=== PATIENT | female | born 1990 | race Caucasian/White ===

== ENCOUNTER 2018-05-02 03:09 | Emergency (ER) | payer OTHER ==
[2018-05-02] MEDS ORDERED: MAG HYDROX/AL HYDROX/SIMETH 30 ML UDC PO STA (03:49)
[2018-05-02] MEDS ORDERED: ACETAMINOPHEN 325 MG TABLET PO STA (03:49)
[2018-05-02] MEDS ORDERED: FAMOTIDINE 20 MG TABLET PO STA (03:49)
[2018-05-02] MEDS ORDERED: LIDOCAINE VISCOUS 2% 15 ML UDC MM STA (03:49)
--- NOTE | 2018-05-02 03:49 | ED Physician Documentation ---
PD HPI ABD PAIN - Stated complaint Stated Complaint: DIFF BREATHING/CHEST PX - Chief complaint Chief Complaint: Cardiac - History obtained from History obtained from: Patient - History of Present Illness Timing - onset: Today Timing - details: Abrupt onset, Still present Quality: Sharp Location: Epigastric Worsened by: Palpation Associated symptoms: Nausea. No: Fever, Vomiting, Hematemesis, Diarrhea, Chest pain Similar symptoms before: Has not had sx before Recently seen: Not recently seen - Additional information Additional information: Patient is a 28 year old female with no significant past medical history who is presenting to the emergency department for epigastric pain. patient states that it started this evening and woke her up from sleep. patient states that it is in her epigastric region and radiates to her back. patient had eggs and potatoes for dinner but nothing out of the ordinary. patient does report being under a lot of stress lately as her father was recently diagnosed with ALS. Patient denies a history of clots or exogenous estrogen use. Review of Systems Ten Systems: 10 systems reviewed and negative Constitutional: denies: Fever, Chills GI: reports: Abdominal Pain, Nausea : denies: Dysuria, Frequency Psychiatric: reports: Anxiety PD PAST MEDICAL HISTORY - Past Medical History Past Medical History: Yes Cardiovascular: None Respiratory: Asthma Neuro: Migraines Endocrine/Autoimmune: None GI: None OPERATIONS MGR: None : None HEENT: None Derm: None - Past Surgical History Past Surgical History: Yes /OPERATIONS MGR: section - Present Medications Home Medications: Ambulatory Orders Medication Instructions Recorded Confirmed No Known Home Medications 05/02/18 05/02/18 - Allergies Allergies/Adverse Reactions: Allergies Allergy/AdvReac Type Severity Reaction Status Date / Time No Known Drug Allergies Allergy Verified 05/02/18 03:22 - Social History Does the pt smoke?: No Smoking Status: Never smoker Does the pt drink ETOH?: Yes Does the pt have substance abuse?: No - Immunizations Immunizations are current?: Yes - POLST Patient has POLST: No PD ED PE NORMAL - Vitals Vital signs reviewed: Yes - General General: Alert and oriented X 3, No acute distress, Well developed/nourished - HEENT HEENT: Atraumatic - Cardiac Cardiac: RRR, No murmur - Respiratory Respiratory: No respiratory distress - Abdomen Abdomen: Soft - Derm Derm: Normal color, Warm and dry, No rash - Extremities Extremities: No deformity, Normal ROM s pain, No calf tenderness / cord - Neuro Neuro: Alert and oriented X 3 Eye Opening: Spontaneous Motor: Obeys Commands Verbal: Oriented GCS Score: 15 PD ED PE EXPANDED - Abdomen Abdomen: Tender to palpation, Epigastric Results - Vitals Vitals: Vital Signs - 24 hr 05/02/18 05/02/18 03:17 03:44 Temperature 36.1 C L Heart Rate 91 78 Respiratory 16 17 Rate Blood Pressure 136/87 H 130/83 H O2 Saturation 98 97 Oxygen O2 Source Room air - EKG (time done) 0325 Rate: Rate (enter#) (83) Rhythm: NSR [place]: Normal Intervals: Normal SD QRS: Normal Ischemia: Normal ST segments Compare to prior EKG: Old EKG unavailable PD MEDICAL DECISION MAKING - ED course Complexity details: reviewed old records, reviewed results, re-evaluated dale hoyos, considered differential, d/w patient ED course: Patient was seen and examined at bedside. ekg was performed and was within normal limits. labs were drawn. patient was treated with pepcid, maalox, and viscous lidocaine. patient's diagnostics were within normal limits. patient had a HEART score of 1 and PERC 0. patient's symptoms were likely secondary to PUD or GERD. patient was made aware of the findings and given detailed discharge and follow up instructions. patient required no further work up and was stable for discharge with outpatient follow up. - Sepsis Event Vital Signs: Vital Signs - 24 hr 05/02/18 05/02/18 03:17 03:44 Temperature 36.1 C L Heart Rate 91 78 Respiratory 16 17 Rate Blood Pressure 136/87 H 130/83 H O2 Saturation 98 97 Oxygen O2 Source Room air Departure - Departure Disposition: 01 Home, Self Care Clinical Impression: Gastroesophageal reflux disease Condition: Good Instructions: GERD Dc Follow-Up: primary,care provider [Other] - As Needed Comments: Your diagnostics today were within normal limits. there were no acute abnormalities and no sign of cardiac disease. Your symptoms are likely secondary to acid reflux and stress. You should try to avoid acidic foods, alcohol, spicey foods. You should try eating smaller meals and not eating before lying down. As far as the stress goes the best things you can do are to talk to someone about it and exercise. You can take maalox if your symptoms return. You should follow up with your doctor if your symptoms become more frequent. You can return to the emergency department at any time for new, worsening or uncontrollable symptoms.
[2018-05-02 03:55] LABS: BASOPHILS % (AUTO) 0.3 %; EOSINOPHILS # (AUTO) 0.1 10^3/uL (0.0-0.7); EOSINOPHILS % (AUTO) 1.4 %; HGB - HEMOGLOBIN 13.4 g/dL (12.0-16.0); MEAN CORPUSCULAR HGB CONC 35.5 g/dL (32.0-36.0); MEAN CORPUSCULAR VOLUME 90.1 fL (81.0-99.0); MEAN PLATELET VOLUME 7.8 fL (7.9-10.8); MONOCYTES # (AUTO) 0.7 10^3/uL (0.0-1.0); MONOCYTES % (AUTO) 7.6 %; NEUTROPHILS # (AUTO) 5.3 10^3/uL (1.5-6.6); NEUTROPHILS % (AUTO) 57.7 %; PLT - PLATELET COUNT 250 10^3/uL (130-450); RED CELL DISTRIBUTION WIDTH 12.2 % (12.0-15.0); WHITE BLOOD COUNT 9.1 x10^3/uL (4.8-10.8)
[2018-05-02 03:58] LABS: BILIRUBIN,URINE NEGATIVE (NEGATIVE); CLARITY,URINE CLEAR (CLEAR); GLUCOSE, URINE (UA) NEGATIVE (NEGATIVE); KETONES,URINE (UA) NEGATIVE (NEGATIVE); LEUKOCYTE ESTERASE, URINE NEGATIVE (NEGATIVE); NITRITE,URINE NEGATIVE (NEGATIVE); OCCULT BLOOD,URINE SMALL (NEGATIVE); PH,URINE 6.5 PH (5.0-7.5); PROTEIN,URINE NEGATIVE (NEGATIVE); UROBILINOGEN,URINE 0.2 (NORMAL) E.U./dL (NORMAL)
[2018-05-02 03:59] LABS: HCG UR QUAL NEGATIVE
[2018-05-02 04:06] LABS: BACTERIA,URINE Rare /HPF (None Seen); RBC,URINE 0-5 /HPF (0-5); SQUAMOUS EPITHELIAL CELL,UR FEW Squamous (<= Few)
[2018-05-02 04:09] LABS: ALBUMIN 4.5 g/dL (3.2-5.5); ALBUMIN/GLOBULIN RATIO 1.6 (1.0-2.2); BILIRUBIN,TOTAL 0.5 mg/dL (0.2-1.0); CALCIUM 9.2 mg/dL (8.5-10.3); CREATININE 0.8 mg/dL (0.4-1.0); TOTAL PROTEIN 7.3 g/dL (6.7-8.2)
[2018-05-02 04:32] VITALS: BP 107/74
== END 2018-05-02 04:37 | disposition home or self-care (01) ==
LOC: ED 03:09
DX: K21.9 Gastro-esophageal reflux disease without esophagitis (principal)
CPT/HCPCS: 36415; 80053; 81001; 81025; 83690; 84484; 85025; 93005; 99283; 99284; A9270; 81003; 87086